=== PATIENT | male | born 1945 | race Caucasian/White ===

== ENCOUNTER 2019-06-24 14:25 | Emergency (ER) | payer MEDICARE, OTHER ==
[~2019-06-24] VITALS: Ht 175.3 cm; Wt 78.9 kg
[~2019-06-24 14:25] MED LIST: AMLODIPINE BESY10 MG PO; ASPIRIN81 M2 PO; CIPROFLOXACIN500 M3 PO; COSOPT EYE DROPS5 ML OPHTHALMIC; CRESTOR10 MG PO; FLAGYL500 MG PO; FUROSEMIDE 40 M40 MG PO; GLUCOPHAGE500 MG PO; K-DUR 20 MEQ T20 MEQ PO; KLOR-CON 10 ER10 MEQ PO; LATANOPROST2.5 ML OPHTHALMIC; LISINOPRIL40 MG PO; LOPRESSOR; LOPRESSOR 50 MG50 M1 PO; MULTIVITAMINS PO; NORVASC10 MG PO; OMEGA-3 FISH1000 M1 PO; PLAVIX 75 MG TA75 MG PO; SOTALOL80 MG PO; TEKTURNA300 MG PO; TRILIPIX135 MG PO
[2019-06-24] MEDS ORDERED: HYDRALAZINE 5050 MG PO (14:42)
[2019-06-24] MEDS ORDERED: FENOFIBRATE130 MG PO (14:43)
[2019-06-24] MEDS ORDERED: METFORMIN HCL500 M3 PO (14:44)
[2019-06-24] MEDS ORDERED: FLOMAX0.4 MG PO (14:44)
[2019-06-24] MEDS ORDERED: PROSCAR 5MG TABL5 M1 PO (14:45)
[2019-06-24] MEDS ORDERED: CHLORTHALIDONE50 MG PO (14:46)
[2019-06-24] MEDS ORDERED: DORZOLAMIDE-TI1 EACH OPHTHALMIC (14:46)
[2019-06-24 15:11] LABS: ABSOLUTE EOSINOPHILS 0.2 thou/uL (0.0-0.7); ABSOLUTE LYMPHOCYTES 1.6 thou/uL (0.8-5.3); ABSOLUTE MONOCYTES 0.9 thou/uL (0.0-1.2); ABSOLUTE NEUTROPHILS 10.7 thou/uL (1.6-8.1); BASOPHILS 0.3 %; EOSINOPHILS 1.5 %; HEMATOCRIT 39.8 % (42.0-52.0); HEMOGLOBIN 13.8 gm/dL (14.0-18.0); MCH 31.4 pg (26.0-34.0); MCHC 34.8 g/dL (28.0-37.0); MCV 90.3 fL (80.0-100.0); MONOCYTES 6.8 %; NUCLEATED RBCS 0 /100WBC; PLATELET COUNT* 212 thou/uL (150-400); POLYS 79.4 %; RBC 4.41 mil/uL (4.50-6.00); RDW-CV 12.9 % (10.5-14.5); WBC 13.5 thou/uL (4.0-11.0)
[2019-06-24 15:15] LABS: CALCIUM 9.6 mg/dL (8.5-10.1); CREATININE 1.8 mg/dL (0.6-1.3); POTASSIUM 3.2 mmol/L (3.5-5.1)
[2019-06-24 15:19] LABS: ALBUMIN 3.5 g/dL (3.4-5.0); TOTAL BILIRUBIN 0.5 mg/dL (<0.1-1.0); TOTAL PROTEIN 7.3 g/dL (6.4-8.2)
[2019-06-24 15:56] LABS: URINE BILIRUBIN NEGATIVE (Negative); URINE BLOOD NEGATIVE (Negative); URINE CLARITY CLEAR; URINE COLOR YELLOW; URINE GLUCOSE-RANDOM NEGATIVE (Negative); URINE KETONES NEGATIVE (Negative); URINE LEUKOCYTES-REFLEX NEGATIVE (Negative); URINE NITRITE-REFLEX NEGATIVE (Negative); URINE PROTEIN NEGATIVE (Negative); URINE SPECIFIC GRAVITY 1.025 (1.005-1.030); URINE UROBILINOGEN 0.2 E.U./dl (0.2-1.0)
[2019-06-24] MEDS ORDERED: ONDANSETRON HCL4 M2 PO (16:25)
[2019-06-24] MEDS ORDERED: NORCO 5-325 TA1 EAC1 PO (16:25)
[2019-06-24] MEDS ORDERED: FLAGYL500 M1 PO (16:25)
[2019-06-24] MEDS ORDERED: CIPRO500 MG PO (16:25)
[2019-06-24 16:37] VITALS: BP 126/50
== END 2019-06-24 16:37 | disposition home or self-care (01) ==
LOC: M.ERS 14:25
PROVIDERS: Nurse Practitioner Family
DX: K57.32 Diverticulitis of large intestine without perforation or abscess without bleeding (principal); E78.5 Hyperlipidemia, unspecified; G47.30 Sleep apnea, unspecified; Z90.49 Acquired absence of other specified parts of digestive tract

== ENCOUNTER → 2019-09-05 | Outpatient (CLI) | payer MEDICARE, OTHER ==
[~2019-09-05] MED LIST changes: +CHLORTHALIDONE50 MG PO; +CIPRO500 MG PO; +DORZOLAMIDE-TI1 EACH OPHTHALMIC; +FENOFIBRATE130 MG PO; +FLAGYL500 M1 PO; +FLOMAX0.4 MG PO; +HYDRALAZINE 5050 MG PO; +METFORMIN HCL500 M3 PO; +NORCO 5-325 TA1 EAC1 PO; +ONDANSETRON HCL4 M2 PO; +PROSCAR 5MG TABL5 M1 PO
== END ==
LOC: M.ULTRA 17:48 → M.ERS 17:48 → M.ULTRA 18:00
DX: I82.621 Acute embolism and thrombosis of deep veins of right upper extremity (principal)

== ENCOUNTER 2021-02-18 16:26 | Inpatient (IN) | payer MEDICARE, OTHER ==
[~2021-02-18] VITALS: Ht 177.8 cm; Wt 74.8 kg
[2021-02-18] VITALS (16 sets, daily range): BP systolic 115–166; BP diastolic 44–60
[2021-02-18 18:06] LABS: ABSOLUTE EOSINOPHILS 0.1 thou/uL (0.0-0.7); ABSOLUTE LYMPHOCYTES 1.7 thou/uL (0.8-5.3); ABSOLUTE MONOCYTES 0.7 thou/uL (0.0-1.2); ABSOLUTE NEUTROPHILS 6.3 thou/uL (1.6-8.1); BASOPHILS 0.5 %; EOSINOPHILS 1.4 %; HEMATOCRIT 35.2 % (42.0-52.0); HEMOGLOBIN 11.9 gm/dL (14.0-18.0); LYMPHOCYTES 19.4 %; MCH 31.4 pg (26.0-34.0); MCHC 33.8 g/dL (28.0-37.0); MCV 92.9 fL (80.0-100.0); MONOCYTES 8.2 %; MPV 7.4 fl. (7.2-11.1); NUCLEATED RBCS 0 /100WBC; PLATELET COUNT* 199 thou/uL (150-400); POLYS 70.5 %; RBC 3.79 mil/uL (4.50-6.00); RDW-CV 12.9 % (10.5-14.5); WBC 8.9 thou/uL (4.0-11.0)
[2021-02-18 18:20] LABS: ANION GAP 5 mmol/L (7-16); BUN 56 mg/dL (7-18); CALCIUM 8.6 mg/dL (8.5-10.1); CHLORIDE 108 mmol/L (98-107); CO2 27 mmol/L (21-32); CREATININE 3.5 mg/dL (0.6-1.3); GLUCOSE 68 mg/dL (70-99); POTASSIUM 4.2 mmol/L (3.5-5.1); SODIUM 140 mmol/L (136-145)
[2021-02-18 18:23] LABS: ALBUMIN 3.4 g/dL (3.4-5.0); ALKALINE PHOSPHATASE 71 U/L (46-116); SGOT 17 U/L (15-37); SGPT 15 U/L (30-65); TOTAL PROTEIN 6.9 g/dL (6.4-8.2)
[2021-02-18 18:29] LABS: TOTAL BILIRUBIN < 0.1 mg/dL (<0.1-1.0)
--- NOTE | 2021-02-18 19:47 | NUR ---
PACER PADS PLACED
[2021-02-19] VITALS (93 sets, daily range): BP systolic 104–165; BP diastolic 35–117
[2021-02-19 04:50] LABS: ABSOLUTE EOSINOPHILS 0.1 thou/uL (0.0-0.7); ABSOLUTE LYMPHOCYTES 1.3 thou/uL (0.8-5.3); ABSOLUTE MONOCYTES 0.7 thou/uL (0.0-1.2); ABSOLUTE NEUTROPHILS 10.6 thou/uL (1.6-8.1); BASOPHILS 0.2 %; EOSINOPHILS 0.4 %; HEMATOCRIT 36.3 % (42.0-52.0); HEMOGLOBIN 12.4 gm/dL (14.0-18.0); LYMPHOCYTES 10.3 %; MCH 31.1 pg (26.0-34.0); MCHC 34.3 g/dL (28.0-37.0); MCV 90.7 fL (80.0-100.0); MONOCYTES 5.7 %; MPV 8.2 fl. (7.2-11.1); NUCLEATED RBCS 0 /100WBC; PLATELET COUNT* 190 thou/uL (150-400); POLYS 83.4 %; RDW-CV 12.8 % (10.5-14.5); WBC 12.7 thou/uL (4.0-11.0)
[2021-02-19 05:09] LABS: CHLORIDE 108 mmol/L (98-107); TROPONIN-I LEVEL <0.06 ng/mL (<0.06)
[2021-02-19 05:11] LABS: ANION GAP 8 mmol/L (7-16); BUN 54 mg/dL (7-18); CALCIUM 8.6 mg/dL (8.5-10.1); CO2 27 mmol/L (21-32); CREATININE 3.2 mg/dL (0.6-1.3); GLUCOSE 95 mg/dL (70-99); SODIUM 143 mmol/L (136-145)
--- NOTE | 2021-02-19 06:30 | NUR ---
ASSESSMENTS CHARTED. PATIENT FLAGGED FOR C.DIFF SCREENING. PLACED IN ISOLATION PENDING STOOL SAMPLE. DOPAMINE INFUSING AT 9 MCG/KG/MIN. HR MAINTAINED OVER 45 PER ORDERS. HEMODYNAMICALLY STABLE AT THIS RATE. PATIENT WAS HYPOGLYCEMIC ON ADMISSION. BLOOD GLUCOSE MAINTAINED WNL AFTER FLUID CHANGES AND HEART HEALTHY DIET STARTED PER CARDIOLOGY. PATIENT'S CONFUSION HAS IMPROVED THIS MORNING. FAMILY AT BEDSIDE ON ADMISSION. HEMODYNAMICALLY STABLE AT THIS TIME.
--- NOTE | 2021-02-19 14:00 | EKG ---
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 : 1945 Requested By: Kalpesh Richard Order Number: [id number] MD: Saran Springer Measurements Intervals [place] Rate: 40 P: 54 WI: 189 QRS: 46 QRSD: 114 T: 43 QT: 641 QTc: 523 Interpretive Statements Sinus bradycardia Probable left ventricular hypertrophy Nondiagnostic inferior Q waves Prolonged QT interval Compared to ECG 12/30/2012 14:46:17 Prolonged QT interval now present Sinus rate has slowed ventricular premature complex(es) no longer present Myocardial infarct finding no longer present Electronically Signed On 02-19-2021 14:00:35 CDT by Saran Springer [email or web address] <ELECTRONICALLY SIGNED> By: Saran Springer MD, [facility] 02/19/21 1400 10 10 Saran Springer MD, [facility] /EPI
--- NOTE | 2021-02-19 15:22 | NUR ---
PT SON AND PRESENT AT BEDSIDE. PT SON INDICATED PT LIVES HOME WITH . PT IS ACTIVE AND INDEPENDENT W/CARES. PT DRIVES A VEHCILE AND HAS HX AT [facility]. PT HAS NO HX WITH SNF OR HH. PER CARE TEAM: THE POC IS TO ADJUST PT'S HOME MEDICATIONS. PT IS A DOPAMINE GTT. PT HAS HUY D/T GLORY. CARDIO IS FOLLOWING.
[2021-02-20] VITALS (65 sets, daily range): BP systolic 97–172; BP diastolic 33–112
[2021-02-20 05:19] LABS: ALKALINE PHOSPHATASE 62 U/L (46-116); ANION GAP 7 mmol/L (7-16); BUN 44 mg/dL (7-18); CALCIUM 8.3 mg/dL (8.5-10.1); CHLORIDE 109 mmol/L (98-107); CO2 25 mmol/L (21-32); CREATININE 3.3 mg/dL (0.6-1.3); POTASSIUM 3.7 mmol/L (3.5-5.1); SGOT 12 U/L (15-37); SGPT < 6 U/L (30-65); SODIUM 141 mmol/L (136-145); TOTAL BILIRUBIN 0.1 mg/dL (<0.1-1.0); TOTAL PROTEIN 6.4 g/dL (6.4-8.2)
[2021-02-20 05:21] LABS: GLUCOSE 34 mg/dL (70-99)
--- NOTE | 2021-02-20 07:28 | NUR ---
ASSESSMENTS CHARTED. PATIENT REMAINS ON DOPAMINE AT 9 MCG/KG/MIN. PATIENT STRUGGLING TO MAINTAIN BLOOD SUGARS DESPITE D5 INFUSION AND EATING MEALS APPROPRIATELY. D50 ADMINISTERED TWICE OVERNIGHT PER ORDERS. HEMODYNAMICALLY STABLE.
[2021-02-20 08:22] LABS: CALCIUM 8.6 mg/dL (8.5-10.1); CREATININE 3.2 mg/dL (0.6-1.3); POTASSIUM 4.3 mmol/L (3.5-5.1)
--- NOTE | 2021-02-20 15:51 | NUR ---
ICU ROUNDS: PT CONT IN GLORY SINUS, BUT HAS SHOWED SOME "IMPROVEMENT." CARDIO FOLLOWING. FAMILY SUPPORTIVE.
--- NOTE | 2021-02-20 19:14 | NUR ---
NO ACUTE EVENTS TODAY. ASSESSMENT CHARTED. PT UP IN CHAIR THIS SHIFT WITH ASSISTANCE. NO OTHER COMPLAINTS AT THIS TIME.
[2021-02-21] VITALS (43 sets, daily range): BP systolic 119–185; BP diastolic 40–71
[2021-02-21 05:24] LABS: ALBUMIN 2.8 g/dL (3.4-5.0); CALCIUM 8.5 mg/dL (8.5-10.1); CREATININE 3.1 mg/dL (0.6-1.3); POTASSIUM 4.1 mmol/L (3.5-5.1); TOTAL BILIRUBIN 0.2 mg/dL (<0.1-1.0); TOTAL PROTEIN 6.2 g/dL (6.4-8.2)
--- NOTE | 2021-02-21 07:36 | NUR ---
ASSESSMENTS CHARTED. PATIENT'S HR REMAINING STABLE IN THE 50'S FOR THE SHIFT. ABLE TO START WORKING DOWN DOPAMINE GTT, NOW AT 6 MCG/KG/MIN. BLOOD SUGARS MAINTAINED BETTER ON D10 INFUSION. PATIENT ANXIOUS ABOUT WANTING TO GO HOME. FAMILY AT BEDSIDE. VSS
[2021-02-21] MEDS ORDERED: NAMENDA 5 MG TAB5 M1 PO (07:40)
--- NOTE | 2021-02-21 08:37 | CON ---
[address] [address] CONSULTATION Name: GARY YEPEZ Room: [address] ADM IN M.R.#: [id number] Admission: 02/18/21 Attend Phys: Johnnie Rivas MD Discharge: Date of : 43 Report #: [id number] THIS REPORT FOR: cc: Jarrett Jeter Gregg R. DO Liston, Michael J. MD [facility] ~ DOC #: [id number] cc: Jarrett Jeter DO, Daniel Dunker Michael J. Liston, MD DATE OF CONSULTATION: 02/19/2021 CARDIOLOGY CONSULTATION INDICATION: Bradycardia. HISTORY OF PRESENT ILLNESS: The patient is a very pleasant 75-year-old gentleman who presented to the emergency room yesterday with complaints of fatigue, lightheadedness and generalized weakness. He was found to be significantly bradycardic with heart rates in the upper 30s and low 40s. The patient was admitted to the hospital for further evaluation. In this setting, he is noted to have acute renal insufficiency as well. He denies any chest pain. He is not having shortness of breath. He had been on sotalol and metoprolol amongst his other medications. These were held and his heart rate has gradually increased to the present rate of approximately 55-60 beats per minute. Symptoms have resolved. The patient has a history of coronary artery disease with cardiac stenting remotely. The patient's memory is such that he does not recall exactly how long to go or where. He denies any history of myocardial infarction. PAST MEDICAL HISTORY: 1. Coronary artery disease. 2. Presumed arrhythmia, type unknown. 3. Hypertension. 4. Dyslipidemia with hypertriglyceridemia. 5. Obstructive sleep apnea. 6. Glaucoma. 7. History of laparoscopic cholecystectomy. 8. Diverticulitis. FAMILY HISTORY: Noncontributory. SOCIAL HISTORY: The patient is a lifelong nonsmoker[place] [address] CONSULTATION Name: GARY YEPEZ Lesa Room: [address]#: [id number] Admission: 02/18/21 Attend Phys: Johnnie Rivas MD Discharge: Date of : 43 Report #: [id number] REVIEW OF SYSTEMS: Fourteen-point review of systems as per HPI, otherwise, unremarkable. PHYSICAL EXAMINATION: VITAL SIGNS: Blood pressure 156/51 and pulse 54 and regular. GENERAL: This is a pleasant elderly gentleman in no distress. Mood and affect appropriate. HEENT: The patient is wearing glasses. Extraocular muscles intact. Mucous membranes are moist. NECK: Shows no jugular venous distention. There are no carotid bruits. CHEST: Reveals clear lung bermeo without wheezes or rales. CARDIAC: Reveals a regular rhythm. Normal S1, S2. I do not appreciate gallop or murmur. ABDOMEN: Reveals normal bowel sounds. Abdomen is soft and nontender. EXTREMITIES: Show no edema. Peripheral pulses are 1-2+ and palpable. SKIN: Warm and dry. A 12-lead EKG shows sinus bradycardia with a heart rate of [address] or T-wave abnormality. LABORATORY DATA: Reviewed. Sodium 143, potassium 4.0, chloride 108, bicarb 27, BUN 54, creatinine 3.2, and serum glucose 95. LFTs within normal limits. EGFR 19. Troponin less than 0.06 on 2 separate occasions. Coags within normal limits. White blood cell count 12.7, hemoglobin 12.4, and platelet count 190,000. IMPRESSION AND RECOMMENDATIONS: 1. Symptomatic bradycardia. The patient was on metoprolol and sotalol, both of which have been held. With this, his heart rate is improving. 2. Arrhythmia, type unknown. I have requested outside records. Holding sotalol due to bradycardia. The patient is not anticoagulated traditionally. 3. Coronary artery disease, presently stable. He is not having any symptoms to suggest angina or acute coronary syndrome. 4. Acute renal failure. The patient has been seen by Nephrology. The patient's ULI inhibitor and ARB have been held. His diuretics have been held. Followup labs are pending. At this point in time, the patient appears to be improving in stability from a cardiac standpoint. I see no indication for pacemaker at this time. Gary Kaminski MD [facility]/[place] [address] CONSULTATION Name: GARY YEPEZ Room: [address] IN ..#: [id number] Admission: 02/18/21 Attend Phys: Johnnie Rivas MD Discharge: Date of : 43 Report #: [id number] <ELECTRONICALLY SIGNED> By: Gary Kaminski MD, FACC 02/21/21 0837 1223 2046[facility] Center[facility] Kaminski MD, DARNELL /nt
--- NOTE | 2021-02-21 16:24 | NUR ---
ICU Rounds: Spoke with dtr Renetta ([phone]). Updated her on plan of care for patient. Patient still on dopamine gtt to improve bradycardia and the plan is to continue to monitor HR. Noted improvement in BS. PT and OT ordered for patient. Plan for HH level of care at discharge. Dtr and both concerned about medication management at discharge so patient will benefit from HH. Dtr requested that [place] follow up with family. [place] notified. CM to to continue to follow
[2021-02-22] VITALS (20 sets, daily range): BP systolic 116–161; BP diastolic 37–63
[2021-02-22 05:19] LABS: HEMATOCRIT 29.7 % (42.0-52.0); HEMOGLOBIN 10.3 gm/dL (14.0-18.0); MCH 32.2 pg (26.0-34.0); MCHC 34.8 g/dL (28.0-37.0); MCV 92.6 fL (80.0-100.0); MPV 7.7 fl. (7.2-11.1); RBC 3.21 mil/uL (4.50-6.00); RDW-CV 13.3 % (10.5-14.5); WBC 8.6 thou/uL (4.0-11.0)
[2021-02-22 05:30] LABS: CALCIUM 8.4 mg/dL (8.5-10.1); CREATININE 3.2 mg/dL (0.6-1.3); POTASSIUM 4.3 mmol/L (3.5-5.1)
--- NOTE | 2021-02-22 15:19 | NUR ---
ICU Rounds: Patient now tele status. Spoke to both (Acosta) and patient at bedside. Discussed HH options for medication management post discharge. Both agree it would be nice to have extra help at home. Referral request sent to [facility] today. Debra Rep, to see family today to discuss HH. Possible dc over the weekend with HH level of care. If patient does dc over the weekend, [place] notified to order HH and dc summary, orders and H and P will need to be faxed to [facility]. Nursing updated on plan of care. Also discussed with family DPOA paperwork. Provided a copy of the form for patient and to discussed. Advised the once patient discharges [facility] cannot notarize and they will need to go to a bank or law office, etc. for notary. Patient and did not want to fill paper work out at this time. [facility] PH: [phone]
--- NOTE | 2021-02-22 16:41 | NUR ---
[facility] added note: Attempted to confirm pcp as Dr. Oliveira [address] [facility] and phone kept cutting me off. Due to patient's memory he had told me it had been years since he was there. finally did call who said he had seen Dr. Oliveira about 5-6 weeks ago and she will set appt. for next week. Already has appt with cardiology for Thursday.
[2021-02-23 01:45] VITALS: BP 133/58
[2021-02-23 04:38] LABS: HEMATOCRIT 30.4 % (42.0-52.0); HEMOGLOBIN 10.6 gm/dL (14.0-18.0); MCH 32.3 pg (26.0-34.0); MCHC 34.8 g/dL (28.0-37.0); MCV 92.8 fL (80.0-100.0); MPV 7.9 fl. (7.2-11.1); RBC 3.28 mil/uL (4.50-6.00); WBC 9.3 thou/uL (4.0-11.0)
[2021-02-23 04:51] LABS: CALCIUM 8.6 mg/dL (8.5-10.1); CREATININE 3.3 mg/dL (0.6-1.3)
[2021-02-23 05:27] LABS: URINE BILIRUBIN NEGATIVE (Negative); URINE BLOOD TRACE (Negative); URINE CLARITY CLEAR; URINE COLOR YELLOW; URINE GLUCOSE-RANDOM NEGATIVE (Negative); URINE KETONES NEGATIVE (Negative); URINE LEUKOCYTES NEGATIVE (Negative); URINE NITRITE NEGATIVE (Negative); URINE PROTEIN 2+ (Negative); URINE UROBILINOGEN 0.2 E.U./dl (0.2-1.0)
[2021-02-23 05:40] LABS: BACTERIA None Seen /HPF (None Seen); CASTS None Seen /LPF (None Seen); CRYSTALS None Seen /LPF (None Seen); MUCUS 0-3 Light strn/LPF (None Seen); SQUAMOUS 0-3 Few /LPF (0-3); URINE RBC None Seen /HPF (0-2); URINE WBC None Seen /HPF (0-5)
[2021-02-23 05:50] VITALS: BP 120/53
[2021-02-23 08:20] VITALS: BP 134/58
[2021-02-23 08:25] VITALS: BP 134/58
--- NOTE | 2021-02-23 11:31 | NUR ---
ASSUMED CARE OF PT AT 0700 PT DISCHARGED AT 1120 WITH DAUGHTER SON AND GRANDON DISCHARGE PACKET REVIEW RELEASE OF INFORMATION COMPLETED FOR MEDICAL RECORDS ALL BELONGINGS PACKED SENT WITH PATIENT TRANSPORTED VIA WHEELCHAIR TO PRIVATE TRANSPORTATION BY FAMILY
--- NOTE | 2021-02-23 12:38 | CON ---
[address] [address] CONSULTATION Name: EVERETTE YEPEZ Room: [address] IN ..#: [id number] Admission: 02/18/21 Attend Phys: Johnnie Rivas MD Discharge: 02/23/21 Date of : 43 Report #: [id number] THIS REPORT FOR: cc: Jarrett Jeter Gregg R. DO Arakelov, Alexandr V. MD ~ DOC #: [id number] Papo Blount MD DATE OF CONSULTATION: 02/19/2021 REQUESTING PHYSICIAN: Johnnie Rivas MD REASON FOR CONSULTATION: Acute kidney injury. HISTORY OF PRESENT ILLNESS: The patient is a 75-year-old gentleman with medical history significant for chronic kidney disease stage 3, followed with me in the office. He also has a history of coronary artery disease, hypertension, presents to the hospital with complaints of not feeling well and he was found to have severe bradycardia, heart rate was in the 30s. He was weak, dizziness, so he was admitted. His medications of metoprolol and sotalol were stopped. His heart rate is better now. His heart rate is up to 54 and creatinine is down to 3.2. SOCIAL HISTORY: No tobacco or alcohol abuse. FAMILY HISTORY: No renal disease. REVIEW OF SYSTEMS: Positive for the symptoms as I mentioned earlier. PHYSICAL EXAMINATION: GENERAL: Awake, alert, oriented. VITAL SIGNS: Blood pressure 156/51, heart rate 54, afebrile. HEENT: Pupils are round. NECK: Supple. LUNGS: Clear. CARDIOVASCULAR: Regular rate. ABDOMEN: Soft. EXTREMITIES: Lower extremities, no edema. LABORATORY DATA: His creatinine is down to 3.2. ASSESSMENT: 1. Acute kidney injury due to underperfusion of the kidneys due to bradycardia. 2. Bradycardia due to medications. 3. [place] [address] CONSULTATION Name: EVERETTE YEPEZ Lesa Room: [address]#: [id number] Admission: 02/18/21 Attend Phys: Johnnie Rivas MD Discharge: 02/23/21 Date of : 43 Report #: [id number] 4. Chronic kidney disease stage 3. PLAN: 1. Renal function is improving. Continue gentle hydration. 2. Avoid medications that will slow down his heart rate. Papo Blount MD [facility] <ELECTRONICALLY SIGNED> By: Papo Blount MD 02/23/21 1238 0858 [id number] Blount MD /nt
== END 2021-02-23 11:20 | disposition home health service (06) | DRG 308 ==
LOC: M.ERS 16:26 → M.ICU 18:45 → M.TBA-ER 18:45 → M.ICU 20:47
PROVIDERS: Emergency Medicine; Family Medicine; Internal Medicine Nephrology; ADMIT Internal Medicine; ATTEND Internal Medicine
DX: R00.1 Bradycardia, unspecified (principal); N17.0 Acute kidney failure with tubular necrosis; E27.40 Unspecified adrenocortical insufficiency; I48.91 Unspecified atrial fibrillation; E78.5 Hyperlipidemia, unspecified; I12.9 Hypertensive chronic kidney disease with stage 1 through stage 4 chronic kidney disease, or unspecified chronic kidney disease; N18.30 Chronic kidney disease, stage 3 unspecified; G47.33 Obstructive sleep apnea (adult) (pediatric); E78.1 Pure hyperglyceridemia; E16.2 Hypoglycemia, unspecified; I25.10 Atherosclerotic heart disease of native coronary artery without angina pectoris; Z20.822 Contact with and (suspected) exposure to COVID-19; Z95.5 Presence of coronary angioplasty implant and graft; I25.2 Old myocardial infarction; Z90.49 Acquired absence of other specified parts of digestive tract; Z79.899 Other long term (current) drug therapy

== ENCOUNTER → 2021-05-31 | Outpatient (CLI) | payer MEDICARE, OTHER ==
[~2021-05-31] MED LIST changes: +NAMENDA 5 MG TAB5 M1 PO
== END ==
LOC: M.LAB 11:26
PROVIDERS: ATTEND Internal Medicine Gastroenterology
DX: Z01.812 Encounter for preprocedural laboratory examination (principal); Z20.822 Contact with and (suspected) exposure to COVID-19